=== PATIENT | male | born 1970 | race Caucasian/White ===

== ENCOUNTER 2018-09-08 22:55 | Emergency (ER) | payer OTHER ==
[~2018-09-08] VITALS: Ht 182.9 cm; Wt 87.0 kg
[~2018-09-08 22:55] MED LIST: METH4TAB2; METH750T87
--- NOTE | 2018-09-08 23:07 | NUR ---
PT TO ROOM PLACED IN GOWN AND ON MONITOR. PT POSITIONED FOR COMFORT AND AWAITING ERP AND ORDERS.
[2018-09-08] MEDS ORDERED: ACETAMINOPHEN 500 MG TABLET ONE (23:18)
[2018-09-08] MEDS ORDERED: SODIUM CHLORIDE 0.9% 1,000ML IVBOLUS ONE (23:30)
[2018-09-08] MEDS ORDERED: ACETAMINOPHEN 500 MG TABLET PO ONE (23:30)
[2018-09-09 00:34] VITALS: BP 137/78
== END 2018-09-09 01:26 | disposition home or self-care (01) ==
LOC: ED 23:43
DX: B34.9 Viral infection, unspecified (principal); E86.0 Dehydration
CPT/HCPCS: 93005; 96360; 96361; 99283; J7030